=== PATIENT | male | born 1985 | race Hispanic/Latino ===

== ENCOUNTER 2017-02-10 18:04 | Emergency (ER) | payer SELFPAY ==
[2017-02-10] MEDS ORDERED: Proparacaine 0.5% Opth 15 ML BOT ONE (18:26)
[2017-02-10] MEDS ORDERED: Fluorescein Opthalmic Strip ONE (18:26)
== END 2017-02-10 20:15 | disposition home or self-care (01) ==
LOC: ERS 18:04
DX: T15.01XA Foreign body in cornea, right eye, initial encounter (principal); Z87.891 Personal history of nicotine dependence
CPT/HCPCS: 65222